=== PATIENT | female | born 1945 | race Caucasian/White ===

== ENCOUNTER 2018-09-07 07:00 | Inpatient (IN) | payer MEDICARE, BC ==
[2018-09-06 18:02] VITALS: Ht 162.6 cm; Wt 90.5 kg
[~2018-09-07] VITALS: Ht 162.6 cm; Wt 90.5 kg
[2018-09-07] VITALS (29 sets, daily range): BP systolic 139–187; BP diastolic 57–78; PULSE 70–88; RESP 10–18
--- NOTE | 2018-09-07 06:01 | HPN ---
Date/Time of Note Date/Time of Note DATE: 09/07/18 TIME: 06:01 Interval H&P Admission Note Pt. seen H&P reviewed: No system changes ANNAMARIE SANTOS MD September 07, 2018 06:01
--- NOTE | 2018-09-07 06:05 | OPR ---
Date/Time of Note Date/Time of Note DATE: 09/07/18 TIME: 06:01 Operative Report Procedure Date: September 07, 2018 Preoperative Diagnosis Left shoulder proximal humerus fracture with torn rotator cuff Postoperative Diagnosis 1. Left shoulder displaced proximal humeral head fracture 2. Left shoulder massive, unrepairable rotator cuff tear 3. Left shoulder acromioclavicular joint arthritis Operation/Procedure Performed 1. Left reverse total shoulder replacement 2. Left open distal clavicular excision 3. Left shoulder injection of PRP solution Surgeon see signature line Heel Nailing Machine Operator Poncho Bennett MD Anesthesia Type: general Estimated Blood Loss: 150 - 200 ml's Transfusion none Specimen None Grafts/Implants See operative note Complications none Pt Condition Post Procedure: stable Disposition: PACU Procedure Description POWER PLANT ELECTRICIAN SURGEON: Poncho Bennett MD was asked to be present for this case at my request. Assistance was necessary as a result of the highly technical nature of this operation. When performing an open total shoulder replacement, it is critical to have a trained treasury assistant who is an expert in handling the extremity and assisting the surgeon in tasks such as manipulation of the arm, protection of the neurovascular structures and positioning the implants. This assistance cannot be performed by a calibration technician, as it is considered an integral part of the procedure and the treasury assistant should be compensated for his time. PROCEDURE IN DETAIL: Following the administration of general anesthesia sup plemented with a peripheral nerve block for postoperative pain control, the patient was examined under anesthesia. This revealed severe stiffness and significant glenohumeral as well as subacromial crepitus. Motion was markedly limited with significant atrophy in a diffuse fashion. Specifically, her motion was limited to about 30 degrees of abduction and 45 degrees of forward flexion. External rotation was about 35 degrees. These all had a relatively solid endpoint. The antecubital fossa was then prepped and 60 cc of blood were aspirated. The blood was then subsequently given to the accounting representative from the company to prepare the PRP solution. The patient was then placed in the beach chair position. Sterile prep and drape was then undertaken of the left upper extremity. An extended deltopectoral incision was then carried through the interval exposing the conjoined tendon and retracting it medially. The superior aspect of the joint was then evaluated. Significant osteophytes were noted in the acromioclavicular joint. The acromioclavicular joint capsule was then entered and the distal clavicle skeletonized for a distance of 10 mm. Severe arthritic changes were noted. An osteotome was then used to resect 10 mm of the distal clavicle. Good decompression was confirmed. The AC joint was irrigated and closed using a #2 interrupted suture. The anterior aspect of the glenohumeral joint was then exposed. There was a partial tear of the subscapularis with a lesser tuberosity fracture that had started to heal medially displaced. In addition, the superior rotator cuff was completely displaced and retracted medially. The superior rotator cuff was then excised and the glenohumeral joint was exposed. A displaced humeral head fracture was noted with a very large Hill-Sachs lesion consistent perhaps with a fracture dislocation. The humeral head cut was then prepared. The subscapul louis was released. The biceps tendon was seen to be chronically torn and retracted. A humeral head osteotomy was then created in the appropriate degree of version and inclination. The humerus was retracted and the glenoid was exposed. Peripheral osteophytes were removed and a complete capsulectomy performed. The central canal of the glenoid was then entered and prepared for a standard Depuy baseplate. A standard Depuy baseplate was then applied with four peripheral screws and solid fixation. A 38 mm glenosphere was then applied, with solid fixation. The humerus was then reamed and prepared for a 10 mm humeral component with a standard metaphyseal component with a 3 mm liner. The humeral canal was irrigated and the PRP solution was implanted within the humeral canal. The actual components were implanted with solid fixation. The arm was taken through full range of motion with no evident instability. The joint was then thoroughly irrigated, the deep tissues were approximated using #1 suture followed by closure of the deep layer using 2-0 Monocryl. The skin was closed using 4-0 Monocryl suture, and a Prenio dressing. An Ultrasling was then applied. The patient was awakened and transported to the recovery room in stable condition. Estimated blood loss for this procedure was 200 cc. Radiographs will be obtained in the recovery room. ANNAMARIE SANTOS MD September 07, 2018 06:05
[~2018-09-07 07:00] MED LIST: BUPIVACAINE 0.5% (SDV) 30 ML, morphine SULFATE (PF) 8 MG, EPINEPHrine 0.3 MG, KETOROLAC... IRR SCH; CEFAZOLIN 2 GM/50 ML (PMX) 50 ML IVPB ONE; DEXAMETHASONE 1 MG TAB PO ONE; GABAPENTIN 300 MG CAP PO ONE; TRANEXAMIC ACID 1GM/100ML(PMX) 100 ML IVPB ONE; VANCOMYCIN 1 GM (PMX) 250 ML IVPB ONE
[2018-09-07] MEDS ORDERED: OMEP40CA6 PO (09:00)
[2018-09-07] MEDS ORDERED: DOXY100T20 PO (09:02)
[2018-09-07] MEDS ORDERED: hydrALAzine 20 MG INJ IV ONE (10:00)
[2018-09-07] MEDS ORDERED: ONDANSETRON 4 MG INJ ONE (10:00)
[2018-09-07] MEDS ORDERED: PROPOFOL 20 ML ONE (10:00)
[2018-09-07] MEDS ORDERED: MIDAZOLAM 1 MG/ML 2 ML INJ ONE (10:00)
[2018-09-07] MEDS ORDERED: METOCLOPRAMIDE 10 MG INJ ONE (10:00)
[2018-09-07] MEDS ORDERED: VANCOMYCIN 500 MG (PMX) 100 ML IVPB SCH (10:00)
[2018-09-07] MEDS ORDERED: ROPIVACAINE 0.5 % 30 ML VIAL ONE (10:00)
[2018-09-07] MEDS ORDERED: HYDROmorphONE 2 MG/ML SYG ONE (10:13)
[2018-09-07] MEDS ORDERED: THROMBIN 5000 UNIT VIAL ONE (11:04)
[2018-09-07] MEDS ORDERED: TOBRAMYCIN 1.2 GM POWDER ONE (11:04)
[2018-09-07] MEDS ORDERED: BUPIVACAINE 0.5%/EPI (SDV) 30 ML INJ ONE (11:05)
[2018-09-07] MEDS ORDERED: POLYMYXIN/BACITRACIN 1L IRRIG ONE (11:05)
[2018-09-07] MEDS ORDERED: CA CHLORIDE 10% 10 ML SYRINGE ONE (11:05)
[2018-09-07] MEDS ORDERED: FENTAnyl 50 MCG/ML VIAL ONE (11:11)
[2018-09-07] MEDS ORDERED: TRANEXAMIC ACID 1GM/100ML(PMX) 100 ML ONE (11:39)
--- NOTE | 2018-09-07 11:52 | PREAC ---
Date/Time of Note Date/Time of Note DATE: 09/07/18 TIME: 11:50 Anesthesia Eval and Record Evaluation Time Pre-Procedure Interview DATE: 09/07/18 TIME: 11:06 Age 73 Sex female NPO: 8 hrs Preoperative diagnosis left shoulder primary OA Planned procedure left reverse total shoulder arthroplasty Past Medical History Past Medical History: Includes GI: GERD Surgery & Anesthesia Issues Hx of PONV, No known issue Meds Anticoagulation: No Beta Debby within 24 hr: No Reason Beta Debby not given: Pt. not on B-Debby Reported Medications Doxycycline Hyclate* (Doxycycline Hyclate*) 100 Mg Tablet.dr, 100 MG PO BID, TAB STARTED 09-05-18 FOR 5 DAYS 09/07/18 Omeprazole* (Omeprazole*) 40 Mg Capsule.dr, 40 MG PO DAILY, #30 CAP 09/07/18 Current Medications Bupivacaine HCl/ Morphine Sulfate/ Epinephrine/ Ketorolac Tromethamine/ Clonidine HCl/ Sodium Chloride/ Vancomycin HCl INTRA-OP IRR ; Start 09/07/18 at 06:00 Meds reviewed: Yes Allergies Coded Allergies: Penicillins (Verified Allergy, Severe, RASH,HIVES, 09/07/18) Sulfa (Sulfonamide Antibiotics) (Verified Allergy, Severe, RASH, 09/07/18) meperidine (Verified Allergy, Intermediate, NAUSEA, 09/07/18) Allergies Reviewed: Yes Labs/Studies Labs Reviewed: Reviewed by anesthesiologist test: N/A Studies: ECG (sr), CXR (nl) Pre-procedure Exam Last vitals Vital Signs Date Temp Pulse Resp B/P (MAP) Pulse Ox O2 O2 Flow FiO2 Time Delivery Rate 09/07/18 70 187/78 10:58 (114) 09/07/18 98.3 18 96 Room Air 10:24 Airway: Adequate mouth opening Mallampati: Mallampati I Teeth: Normal Lung: Normal Heart: Normal ASA Physical Status ASA physical status: 1 Emergency: None Planned Anesthetic General/MAC: LMA Nerve block: Brachial plexus (left) Planned Pain Management Sub-arachniod narcotics, Single shot nerve block, Parenteral pain med Pre-operative Attestations Prior to commencing anesthesia and surgery, the patient was re-evaluated, there was verification of: *The patient's identity *The results of appropriate recent lab work and preoperative vital signs *The above evaluation not changing prior to induction *Anesthetic plan, risk benefits, alternative and complications discussed with p atient/family; questions answered; patient/family understands, accepts and wishes to proceed. LUPE CRAIG MD September 07, 2018 11:52
[2018-09-07] MEDS ORDERED: SCOPOLAMINE 1.5 MG PATCH ONE (11:53)
[2018-09-07] MEDS ORDERED: FENTAnyl 50 MCG/ML VIAL IV PRN ×3 (12:00)
[2018-09-07] MEDS ORDERED: hydrALAzine 20 MG INJ IV PRN (12:00)
[2018-09-07] MEDS ORDERED: LABETALOL HCL 20MG INJ IV PRN (12:00)
[2018-09-07] MEDS ORDERED: ONDANSETRON 4 MG INJ IV PRN (12:00)
[2018-09-07] MEDS ORDERED: HYDROmorphONE 1 MG/5 ML IV SYRINGE IV PRN ×3 (12:00)
[2018-09-07] MEDS ORDERED: DIPHENHYDRAMINE 50 MG INJ IV PRN ×2 (12:00→13:00)
[2018-09-07] MEDS ORDERED: LABETALOL HCL 20MG INJ ONE (12:08)
[2018-09-07] MEDS ORDERED: LOPERAMIDE 2 MG CAP PO PRN (13:00)
[2018-09-07] MEDS ORDERED: TRANEXAMIC ACID 1GM/100ML(PMX) 100 ML IVPB ONE (13:00)
[2018-09-07] MEDS ORDERED: oxyCODONE 5 MG TAB PO PRN ×2 (13:00)
[2018-09-07] MEDS ORDERED: NACL 0.9% 3 ML SYG IV SCH (13:00)
[2018-09-07] MEDS ORDERED: HYDROmorphONE 1 MG/ML SYG IV PRN (13:00)
[2018-09-07] MEDS ORDERED: ZOLPIDEM 5 MG TAB PO PRN (13:00)
[2018-09-07] MEDS ORDERED: MAGNESIUM HYDROXIDE 30ML CUP PO PRN (13:00)
[2018-09-07] MEDS ORDERED: KETOROLAC 15 MG INJ IV PRN (13:00)
--- NOTE | 2018-09-07 14:21 | PDOCDIS ---
Discharge Instructions DIAGNOSIS Discharge Diagnosis Posttraumatic arthritis CONDITION [id number] Patient Condition: Isrew1e Good HOME CARE INSTRUCTIONS: [id number] Diet Instructions: [id number] Regular ACTIVITY: [id number] Activity Restrictions: [id number] Rest between Activity Keep Limb Elevated [id number] Bathing Restrictions: [id number] Shower FOLLOW UP/APPOINTMENTS Follow-up Plan 2 weeks in the office SCHOOL/WORK RELEASE May return to School/Work with: With Restrictions School/Work Release Comment: 5 pound tabletop usage for 6 weeks ANNAMARIE SANTOS MD September 07, 2018 14:21
[2018-09-07] MEDS: ONDANSETRON 4 MG INJ IV PRN ×2 (15:18→21:20)
--- NOTE | 2018-09-07 16:46 | PAC ---
Date/Time of Note Date/Time of Note DATE: 09/07/18 TIME: 16:44 Post-Anesthesia Notes Post-Anesthesia Note Last documented vital signs Vital Signs Date Temp Pulse Resp B/P (MAP) Pulse Ox O2 O2 Flow FiO2 Time Delivery Rate 09/07/18 98.8 78 19 156/68 98 15:33 (97) 09/07/18 98.7 18 Nasal 15:02 Cannula 09/07/18 97 2.0 14:20 Activity: WNL Respiratory function: WNL Cardiovascular function: WNL Mental status: Baseline Pain reasonably controlled: Yes Hydration appropriate: Yes Nausea/Vomiting absent: No LUPE CRAIG MD September 07, 2018 16:45
[2018-09-07] MEDS: ACETAMINOPHEN 500 MG TAB PO SCH (18:54)
[2018-09-07] MEDS: DEXAMETHASONE 2 MG TAB PO SCH (18:54)
[2018-09-07] MEDS ORDERED: GABAPENTIN 300 MG CAP PO SCH (21:00)
[2018-09-07] MEDS: SENNA/DOCUSATE NA (8.6MG/50MG) TAB PO SCH (21:18)
[2018-09-08] MEDS: VANCOMYCIN 500 MG (PMX) 100 ML IVPB SCH ×2 (00:03→12:00)
[2018-09-08] MEDS: ACETAMINOPHEN 500 MG TAB PO SCH ×3 (00:06→11:59)
[2018-09-08] MEDS: DEXAMETHASONE 2 MG TAB PO SCH ×3 (00:06→11:58)
[2018-09-08 02:09] VITALS: BP 132/61; PULSE 72; RESP 18
--- NOTE | 2018-09-08 06:09 | PN ---
Date/Time of Note Date/Time of Note DATE: 09/08/18 TIME: 06:08 Subjective Awake and alert with no complaints Objective Vitals Vital Signs Date Temp Pulse Resp B/P (MAP) Pulse Ox O2 O2 Flow FiO2 Time Delivery Rate 09/08/18 97.9 05:47 09/08/18 72 18 132/61 92 02:09 (84) 09/07/18 Nasal 15:02 Cannula 09/07/18 2.0 14:20 Intake and Output 09/07/18 09/07/18 09/08/18 1515:00 23:00 07:00 IntakeIntake Total 1200 ml 600 ml OutputOutput Total 150 ml BalanceBalance 1050 ml 600 ml Wound is clean and dry. Neurologically intact. No signs of DVT. Medications Medications Current Medications Bupivacaine HCl/ Morphine Sulfate/ Epinephrine/ Ketorolac Tromethamine/ Clonidine HCl/ Sodium Chloride/ Vancomycin HCl INTRA-OP IRR ; Start 09/07/18 at 06:00 Senna/Docusate Sodium (Senokot-S) 1 tab BID PO Last administered on 09/07/18at 21:18; Admin Dose 1 TAB; Start 09/07/18 at 21:00 Simethicone (Mylicon) 80 mg TID PRN PO .GAS; Start 09/07/18 at 13:00 Magnesium Hydroxide (Milk Of Mag) 30 ml BID PRN PO .CONSTIPATION; Start 09/07/18 at 13:00 Loperamide HCl (Imodium Cap) 2 mg Q6H PRN PO .DIARRHEA; Start 09/07/18 at 13:00 Dexamethasone (Decadron) 2 mg Q6 PO Last administered on 09/08/18at 05:47; Admin Dose 2 MG; Start 09/07/18 at 18:00; Stop 09/08/18 at 12:01 Gabapentin (Neurontin) 300 mg HS PO Last administered on 09/07/18at 21:17; Admin Dose 300 MG; Start 09/07/18 at 21:00 Acetaminophen (Tylenol Tab) 500 mg Q6 PO Last administered on 09/08/18at 05:47; Admin Dose 500 MG; Start 09/07/18 at 18:00 Oxycodone HCl (Roxicodone) 15 mg Q4H PRN PO .PAIN; Start 09/07/18 at 13:00 Oxycodone HCl (Roxicodone) 10 mg Q4H PRN PO .PAIN; Start 09/07/18 at 13:00 Oxycodone HCl (Roxicodone) 5 mg Q4H PRN PO .PAIN; Start 09/07/18 at 13:00 Hydromorphone HCl (Dilaudid) 1 mg Q4H PRN IV .BREAKTHROUGH PAIN; Start 09/07/18 at 13:00 Ketorolac Tromethamine (Toradol) 15 mg Q6H PRN IV .PAIN; Start 09/07/18 at 13:00 Ondansetron HCl (Zofran Inj) 4 mg Q6H PRN IV NAUSEA/VOMITING Last administered on 09/07/18at 21:20; Admin Dose 4 MG; Start 09/07/18 at 13:00 Diphenhydramine HCl (Benadryl) 25 mg Q6H PRN IV .PRURITUS; Start 09/07/18 at 13:00 Zolpidem Tartrate (Ambien) 10 mg HS PRN PO .INSOMNIA Last administered on 09/07/18at 21:18; Admin Dose 10 MG; Start 09/07/18 at 13:00 IV Flush (NS 3 ml) 3 ml per protocol IV ; Start 09/07/18 at 13:00 Vancomycin HCl 100 ml @ 100 mls/hr Q12H IVPB Last administered on 09/08/18at 00:03; Admin Dose 100 MLS/HR; Start 09/07/18 at 23:00; Stop 09/08/18 at 11:59 VTE Prophylaxis Risk score (from Nsg)>0 risk: 12 SCD applied (from Nsg): Yes Lines/Catheters IV Catheter Type: Saline Lock Robles in Place: No Assessment/Plan Assessment/Plan Assessment: Status post reverse total shoulder Plan: Begin PT this morning discharge after ANNAMARIE SANTOS MD September 08, 2018 06:09
--- NOTE | 2018-09-08 06:09 | DS ---
Date/Time of Note Date/Time of Note DATE: 09/08/18 TIME: 06:09 Discharge Summary Admission/Discharge Info Admit Date/Time September 07, 2018 at 08:14 Discharge Date/Time 09/08/2018 Discharge Diagnosis Posttraumatic arthritis Patient Condition: Good Hospital Course Patient was admitted underwent uncomplicated procedure. Postop day 1 discharge follow-up in the office in 2 weeks Home Meds Reported Medications Doxycycline Hyclate* (Doxycycline Hyclate*) 100 Mg Tablet.dr, 100 MG PO BID, TAB STARTED 09-05-18 FOR 5 DAYS 09/07/18 Omeprazole* (Omeprazole*) 40 Mg Capsule.dr, 40 MG PO DAILY, #30 CAP 09/07/18 Follow-up Plan 2 weeks in the office Primary Care Provider Not On Staff Doctor ANNAMARIE SANTOS MD September 08, 2018 06:09
[2018-09-08 08:28] VITALS: BP 135/63; PULSE 72; RESP 18
[2018-09-08] MEDS: SENNA/DOCUSATE NA (8.6MG/50MG) TAB PO SCH (08:38)
[2018-09-08] MEDS: oxyCODONE 5 MG TAB PO PRN ×2 (08:39→14:11)
[2018-09-08] MEDS: ONDANSETRON 4 MG INJ IV PRN (09:56)
[2018-09-08 14:00] VITALS: BP 130/66; PULSE 77; RESP 18
== END 2018-09-08 17:25 | disposition home or self-care (01) | DRG 483 ==
LOC: REC 08:14 → MS1 14:12
PROVIDERS: ADMIT Orthopaedic Surgery; ATTEND Orthopaedic Surgery
PROC: 0PBB0ZZ Excision of Left Clavicle, Open Approach (ICD-10-PCS; 2018-09-07)
PROC: 0RRK00Z Replacement of Left Shoulder Joint with Reverse Ball and Socket Synthetic Substitute, Open Approach (ICD-10-PCS; principal; 2018-09-07 12:00)
DX: S46.012A Strain of muscle(s) and tendon(s) of the rotator cuff of left shoulder, initial encounter (principal); S42.292A Other displaced fracture of upper end of left humerus, initial encounter for closed fracture; X50.1XXA Overexertion from prolonged static or awkward postures, initial encounter; Y93.K1 Activity, walking an animal; M19.012 Primary osteoarthritis, left shoulder; K21.9 Gastro-esophageal reflux disease without esophagitis; R73.03 Prediabetes; F41.8 Other specified anxiety disorders
CPT/HCPCS: 73030; 86999; 88304; 88311; 97162; C1776; J0171; J0360; J1170; J1885; J2250; J2274; J2405; J2765; J2795; J3010; J3370